=== PATIENT | male | born 1955 | race Caucasian/White ===

== ENCOUNTER 2016-06-27 14:20 | Outpatient (RCR) | payer BC | END 2016-06-28 | LOC: M CR 14:20 | PROVIDERS: ATTEND Internal Medicine Cardiovascular Disease | DX: Z51.89 Encounter for other specified aftercare (principal); Z98.61 Coronary angioplasty status; I25.10 Atherosclerotic heart disease of native coronary artery without angina pectoris ==

== ENCOUNTER 2016-07-18 08:30 | Outpatient (RCR) | payer BC | END 2016-07-26 | LOC: M CR 08:30 | PROVIDERS: ATTEND Internal Medicine Cardiovascular Disease | DX: Z98.61 Coronary angioplasty status (principal); I25.10 Atherosclerotic heart disease of native coronary artery without angina pectoris ==

== ENCOUNTER 2016-08-19 13:22 | Outpatient (RCR) | payer BC | END 2016-08-26 | LOC: M CR 13:22 | PROVIDERS: ATTEND Internal Medicine Cardiovascular Disease | DX: Z98.61 Coronary angioplasty status (principal); I25.10 Atherosclerotic heart disease of native coronary artery without angina pectoris ==

== ENCOUNTER 2016-09-05 14:07 | Outpatient (RCR) | payer BC | END 2016-09-25 | LOC: M CR 14:07 | PROVIDERS: ATTEND Internal Medicine Cardiovascular Disease | DX: Z98.61 Coronary angioplasty status (principal); I25.10 Atherosclerotic heart disease of native coronary artery without angina pectoris ==

== ENCOUNTER → 2016-11-01 | Outpatient (CLI) | payer BC ==
[2016-11-01 14:07] LABS: BASO % 0.7 % (0.0-1.0); EOS # 0.2 K/mm3 (0.0-0.50); LARGE UNSTAINED CELL # 0.1 K/mm3 (0.0-0.4); LARGE UNSTAINED CELL % 1.8 % (0.0-4.0); LYMPH # 1.8 K/mm3 (1.5-4.5); LYMPH % 25.1 % (24.0-44.0); MEAN CORPUSCULAR HEMOGLOBIN 31.8 pg (27.0-33.0); MEAN CORPUSCULAR HGB CONC 34.1 g/dl (32.0-36.5); MEAN CORPUSCULAR VOLUME 93.3 fl (80.0-96.0); MONO # 0.5 K/mm3 (0.0-0.8); MONO % 6.7 % (0.0-5.0); NEUTROPHILS # 4.4 K/mm3 (1.8-7.7); NEUTROPHILS % 62.6 % (36.0-66.0); PLATELET COUNT, AUTOMATED 286 k/mm3 (150-450); RED CELL DISTRIBUTION WIDTH 12.1 % (11.5-14.5); WHITE BLOOD COUNT 7.1 K/mm3 (4.0-10.0)
[2016-11-01 14:25] LABS: ALBUMIN 3.6 GM/DL (3.2-5.2); ALBUMIN/GLOBULIN RATIO 1.33 (1.00-1.93); ALKALINE PHOSPHATASE 69 U/L (45-117); ALT/SGPT 46 U/L (12-78); ANION GAP 5 MEQ/L (8-16); AST/SGOT 19 U/L (15-37); BILIRUBIN,TOTAL 0.4 MG/DL (0.2-1.0); BLOOD UREA NITROGEN 12 MG/DL (7-18); CALCIUM LEVEL 8.9 MG/DL (8.8-10.2); CARBON DIOXIDE LEVEL 30 MEQ/L (21-32); CHLORIDE LEVEL 106 MEQ/L (98-107); CREATININE FOR GFR 0.87 MG/DL (0.70-1.30); GLOMERULAR FILTRATION RATE > 60.0 (>49); GLUCOSE, FASTING 96 MG/DL (80-110); POTASSIUM SERUM 4.4 MEQ/L (3.5-5.1); SODIUM LEVEL 141 MEQ/L (136-145); TOTAL PROTEIN 6.3 GM/DL (6.4-8.2)
== END ==
LOC: M LRY 11:13
PROVIDERS: ATTEND Family Medicine
DX: R53.83 Other fatigue (principal); R63.5 Abnormal weight gain

== ENCOUNTER → 2018-07-18 | Outpatient (REF) | payer BC | LOC: M LAB REF 15:50 | PROVIDERS: ATTEND Ophthalmology | DX: H11.442 Conjunctival cysts, left eye (principal) ==

== ENCOUNTER → 2018-09-28 | Outpatient (CLI) | payer BC ==
[2018-09-28 11:27] LABS: HEMATOCRIT 42.1 % (42.0-52.0); HEMOGLOBIN 14.2 g/dl (13.5-17.5); MEAN CORPUSCULAR HGB CONC 33.7 g/dl (32.0-36.5); MEAN CORPUSCULAR VOLUME 91.9 fl (80.0-96.0); PLATELET COUNT, AUTOMATED 281 10^3/uL (150-450); RED BLOOD COUNT 4.58 10^6/uL (4.30-6.10); WHITE BLOOD COUNT 7.8 10^3/uL (4.0-10.0)
[2018-09-28 11:56] LABS: ALBUMIN 3.7 GM/DL (3.2-5.2); ALT/SGPT 22 U/L (12-78); BILIRUBIN,TOTAL 0.3 MG/DL (0.2-1.0); BLOOD UREA NITROGEN 12 MG/DL (7-18); CALCIUM LEVEL 8.5 MG/DL (8.8-10.2); CARBON DIOXIDE LEVEL 28 MEQ/L (21-32); CHLORIDE LEVEL 109 MEQ/L (98-107); CHOLESTEROL LEVEL 165 MG/DL (<200); CHOLESTEROL RISK RATIO 2.946 (<5); CREATININE FOR GFR 0.87 MG/DL (0.70-1.30); GLOMERULAR FILTRATION RATE > 60.0 (>49); GLUCOSE, FASTING 93 MG/DL (70-100); HDL CHOLESTEROL 56 MG/DL (>40); LDL CHOLESTEROL 93 MG/DL (<100); NON-HDL-C 109 MG/DL; POTASSIUM SERUM 4.2 MEQ/L (3.5-5.1); SODIUM LEVEL 141 MEQ/L (136-145); TOTAL PROTEIN 7.1 GM/DL (6.4-8.2); TRIGLYCERIDES LEVEL 79 MG/DL (<150)
== END ==
LOC: M LRY 10:05
PROVIDERS: ATTEND Physician Assistant
DX: I25.10 Atherosclerotic heart disease of native coronary artery without angina pectoris (principal)

== ENCOUNTER → 2020-04-30 | Outpatient (REF) | payer BC ==
[2020-04-30 12:11] LABS: APPEARANCE, URINE CLEAR (CLEAR); BACTERIA, URINE AUTO NEGATIVE (NEGATIVE); BILIRUBIN, URINE AUTO NEGATIVE (NEGATIVE); BLOOD, URINE BLOOD 1+ (NEGATIVE); COLOR, URINE YELLOW (YELLOW); GLUCOSE, URINE (UA) AUTO NEGATIVE (NEGATIVE); KETONE, URINE AUTO NEGATIVE (NEGATIVE); LEUKOCYTE ESTERASE, URINE AUTO NEGATIVE (NEGATIVE); MUCUS, URINE SMALL (NEGATIVE); NITRITE, URINE AUTO NEGATIVE (NEGATIVE); PROTEIN, URINE AUTO NEGATIVE (NEGATIVE); RBC, URINE AUTO 4 /HPF (0-3); SQUAMOUS EPITHELIAL CELL UR AU 0 /HPF (0-6); UROBILINOGEN, URINE AUTO 0.2 mg/dL (0.0-2.0); WBC, URINE AUTO 1 /HPF (0-3)
== END ==
LOC: M LAB REF 11:23
PROVIDERS: ATTEND Physician Assistant
DX: N39.0 Urinary tract infection, site not specified (principal)

== ENCOUNTER → 2020-05-12 | Outpatient (REF) | payer BC ==
[2020-05-12 16:51] LABS: APPEARANCE, URINE HAZY (CLEAR); BACTERIA, URINE AUTO NEGATIVE (NEGATIVE); BILIRUBIN, URINE AUTO NEGATIVE (NEGATIVE); BLOOD, URINE BLOOD 1+ (NEGATIVE); COLOR, URINE YELLOW (YELLOW); GLUCOSE, URINE (UA) AUTO NEGATIVE (NEGATIVE); KETONE, URINE AUTO NEGATIVE (NEGATIVE); LEUKOCYTE ESTERASE, URINE AUTO NEGATIVE (NEGATIVE); MUCUS, URINE SMALL (NEGATIVE); NITRITE, URINE AUTO NEGATIVE (NEGATIVE); PROTEIN, URINE AUTO NEGATIVE (NEGATIVE); RBC, URINE AUTO 8 /HPF (0-3); SPECIFIC GRAVITY URINE AUTO 1.024 (1.002-1.035); SQUAMOUS EPITHELIAL CELL UR AU 0 /HPF (0-6); UROBILINOGEN, URINE AUTO 0.2 mg/dL (0.0-2.0); WBC, URINE AUTO 1 /HPF (0-3)
== END ==
LOC: M LAB REF 16:30
PROVIDERS: ATTEND Physician Assistant
DX: N39.0 Urinary tract infection, site not specified (principal)

== ENCOUNTER → 2021-07-06 | Outpatient (CLI) | payer BC ==
[2021-07-06 12:11] LABS: HEMATOCRIT 44.6 % (42.0-52.0); HEMOGLOBIN 14.8 g/dl (13.5-17.5); MEAN CORPUSCULAR HEMOGLOBIN 31.1 pg (27.0-33.0); MEAN CORPUSCULAR HGB CONC 33.2 g/dl (32.0-36.5); MEAN CORPUSCULAR VOLUME 93.7 fl (80.0-96.0); PLATELET COUNT, AUTOMATED 283 10^3/uL (150-450); RED BLOOD COUNT 4.76 10^6/uL (4.30-6.10); WHITE BLOOD COUNT 8.1 10^3/uL (4.0-10.0)
[2021-07-06 12:54] LABS: ALBUMIN 3.8 GM/DL (3.2-5.2); ALT/SGPT 31 U/L (12-78); BILIRUBIN,TOTAL 0.3 MG/DL (0.2-1.0); BLOOD UREA NITROGEN 16 MG/DL (7-18); CALCIUM LEVEL 9.2 MG/DL (8.8-10.2); CARBON DIOXIDE LEVEL 24 MEQ/L (21-32); CHLORIDE LEVEL 108 MEQ/L (98-107); CHOLESTEROL LEVEL 152 MG/DL (<200); CHOLESTEROL RISK RATIO 2.714 (<5); CREATININE FOR GFR 0.91 MG/DL (0.70-1.30); GLOMERULAR FILTRATION RATE > 60.0 (>49); GLUCOSE, FASTING 97 MG/DL (70-100); HDL CHOLESTEROL 56 MG/DL (>40); LDL CHOLESTEROL 86 MG/DL (<100); NON-HDL-C 96 MG/DL; POTASSIUM SERUM 4.3 MEQ/L (3.5-5.1); SODIUM LEVEL 140 MEQ/L (136-145); TOTAL PROTEIN 6.7 GM/DL (6.4-8.2); TRIGLYCERIDES LEVEL 50 MG/DL (<150)
[2021-07-07 15:09] LABS: Lyme Disease IgG/IgM Antibodie <0.91 ISR (0.00-0.90); Lyme Disease IgM Ab Quantitati <0.80 index (0.00-0.79)
== END ==
LOC: M WUC 09:19
PROVIDERS: ATTEND Physician Assistant
DX: I25.10 Atherosclerotic heart disease of native coronary artery without angina pectoris (principal); R53.83 Other fatigue; R06.02 Shortness of breath

== ENCOUNTER 2021-11-25 09:53 | Emergency (ER) | payer BC ==
[2021-11-25 10:33] LABS: BASO # 0.1 10^3/uL (0.0-0.2); BASO % 1.1 % (0.0-1.0); EOS # 0.2 10^3/uL (0.0-0.5); HEMATOCRIT 41.5 % (42.0-52.0); HEMOGLOBIN 14.1 g/dl (13.5-17.5); LYMPH # 1.5 10^3/uL (1.5-5.0); MEAN CORPUSCULAR HEMOGLOBIN 31.5 pg (27.0-33.0); MEAN CORPUSCULAR VOLUME 92.6 fl (80.0-96.0); MONO # 0.5 10^3/uL (0.0-0.8); MONO % 7.9 % (2.0-8.0); NEUTROPHILS # 4.3 10^3/uL (1.5-8.5); NEUTROPHILS % 64.5 % (36.0-66.0); PLATELET COUNT, AUTOMATED 255 10^3/uL (150-450); RED BLOOD COUNT 4.48 10^6/uL (4.30-6.10); WHITE BLOOD COUNT 6.6 10^3/uL (4.0-10.0)
[2021-11-25 10:58] LABS: CK-MB VALUE MASS 5.2 NG/ML (<3.6); MB/CK RELATIVE INDEX 1.67 (< OR =4)
[2021-11-25 10:59] LABS: ALT/SGPT 28 U/L (12-78); BILIRUBIN,DIRECT 0.1 MG/DL (0.0-0.2); BILIRUBIN,TOTAL 0.4 MG/DL (0.2-1.0); BLOOD UREA NITROGEN 14 MG/DL (7-18); CALCIUM LEVEL 9.4 MG/DL (8.8-10.2); CARBON DIOXIDE LEVEL 29 MEQ/L (21-32); CHLORIDE LEVEL 108 MEQ/L (98-107); CREATININE FOR GFR 0.85 MG/DL (0.70-1.30); GLOMERULAR FILTRATION RATE > 60.0 (>49); GLUCOSE, FASTING 109 MG/DL (70-100); LIPASE 311 U/L (73-393); NT-PRO BNP 25 PG/ML (<125); POTASSIUM SERUM 3.9 MEQ/L (3.5-5.1); SODIUM LEVEL 141 MEQ/L (136-145); TOTAL PROTEIN 6.5 GM/DL (6.4-8.2)
[2021-11-25 11:07] LABS: RSV AMPLIFICATION NEGATIVE (NEGATIVE)
[2021-11-25] MEDS ORDERED: ISOVUE-370 76% 100ML VIAL As Ordered ONE (11:11)
[2021-11-25 12:17] LABS: CK-MB VALUE MASS 5.2 NG/ML (<3.6); MB/CK RELATIVE INDEX 1.76 (< OR =4)
[2021-11-25 15:05] LABS: CK-MB VALUE MASS 4.5 NG/ML (<3.6); MB/CK RELATIVE INDEX 1.62 (< OR =4)
[2021-11-25 15:52] VITALS: BP 153/86
== END 2021-11-25 15:54 | disposition home or self-care (01) ==
LOC: EDBD 09:53 → M ED 09:53
DX: R07.9 Chest pain, unspecified (principal); I25.10 Atherosclerotic heart disease of native coronary artery without angina pectoris; I25.2 Old myocardial infarction; Z95.5 Presence of coronary angioplasty implant and graft; Z88.5 Allergy status to narcotic agent
CPT/HCPCS: 71045; 71275; 80048; 80076; 82550; 82553; 83690; 83880; 84484; 85025; 87631; 93005; 93041; 94760; 99285; Q9967

== ENCOUNTER → 2022-06-06 | Outpatient (CLI) | payer BC ==
[2022-06-06 13:32] LABS: BASO % 0.4 % (0.0-1.0); EOS # 0.5 10^3/uL (0.0-0.5); EOS % 7.4 % (0.0-3.0); HEMATOCRIT 43.6 % (42.0-52.0); HEMOGLOBIN 14.5 g/dl (13.5-17.5); LYMPH # 1.1 10^3/uL (1.5-5.0); LYMPH % 15.7 % (24.0-44.0); MEAN CORPUSCULAR HGB CONC 33.3 g/dl (32.0-36.5); MEAN CORPUSCULAR VOLUME 93.2 fl (80.0-96.0); MONO # 0.8 10^3/uL (0.0-0.8); MONO % 11.5 % (2.0-8.0); NEUTROPHILS # 4.5 10^3/uL (1.5-8.5); NEUTROPHILS % 64.7 % (36.0-66.0); PLATELET COUNT, AUTOMATED 293 10^3/uL (150-450); RED BLOOD COUNT 4.68 10^6/uL (4.30-6.10)
[2022-06-06 15:14] LABS: ALBUMIN 3.4 G/DL (3.2-5.2); ALKALINE PHOSPHATASE 95 U/L (46-116); ALT/SGPT 24 U/L (7.0-40); AST/SGOT 18 U/L (<34); BILIRUBIN,DIRECT 0.1 MG/DL (<0.4); BILIRUBIN,TOTAL 0.4 MG/DL (0.3-1.2); BLOOD UREA NITROGEN 14 MG/DL (9-23); CALCIUM LEVEL 8.5 MG/DL (8.3-10.6); CARBON DIOXIDE LEVEL 26 MMOL/L (20-31); CHLORIDE LEVEL 104 MMOL/L (98-107); CREATININE FOR GFR 0.98 MG/DL (0.70-1.30); GLOMERULAR FILTRATION RATE > 60.0 (>49); GLUCOSE, FASTING 110 MG/DL (74-106); POTASSIUM SERUM 3.8 MMOL/L (3.5-5.1); SODIUM LEVEL 139 MMOL/L (136-145)
[2022-06-06 15:17] LABS: CPK CREATINE PHOSPHOKINASE 126 U/L (46-171)
== END ==
LOC: M WUC 11:05
PROVIDERS: ATTEND Physician Assistant
DX: R09.1 Pleurisy (principal)

== ENCOUNTER → 2023-10-03 | Outpatient (CLI) | payer BC ==
[~2023-10-03] MED LIST: GASTROGRAFIN SOLUTION 30ML ONE; ISOVUE-370 76% 100ML VIAL ONE
== END ==
LOC: M PLAIMG 08:20
PROVIDERS: ATTEND Physician Assistant
DX: R10.817 Generalized abdominal tenderness (principal); J84.10 Pulmonary fibrosis, unspecified; K57.90 Diverticulosis of intestine, part unspecified, without perforation or abscess without bleeding; R93.3 Abnormal findings on diagnostic imaging of other parts of digestive tract
CPT/HCPCS: 74177; Q9963; Q9967

== ENCOUNTER 2023-11-03 08:54 | Day surgery (SDC) | payer BC, MEDICARE ==
[~2023-11-03] VITALS: Ht 162.6 cm; Wt 85.3 kg
[~2023-11-03 08:54] MED LIST changes: +ASPI81TA26 PO; +ATOR40TA75 PO; -GASTROGRAFIN SOLUTION 30ML ONE; -ISOVUE-370 76% 100ML VIAL ONE
[2023-11-03] MEDS: NS 1,000 ML IV ONE (10:00)
[2023-11-03] MEDS ORDERED: propofoL 500 MG/50 ML VIAL As Ordered ONE (11:11)
[2023-11-03] MEDS ORDERED: LIDOCAINE 2% 100MG/5ML SDV (FOR ANES.) As Ordered ONE (11:11)
[2023-11-03 11:44] VITALS: TEMP 97.9
[2023-11-03 12:07] VITALS: BP 170/84; O2SAT 95
== END 2023-11-03 12:16 | disposition home or self-care (01) ==
LOC: M OPP 08:54
PROVIDERS: ATTEND Surgery
DX: D12.6 Benign neoplasm of colon, unspecified (principal); C18.5 Malignant neoplasm of splenic flexure; K64.2 Third degree hemorrhoids; K57.30 Diverticulosis of large intestine without perforation or abscess without bleeding; R93.3 Abnormal findings on diagnostic imaging of other parts of digestive tract; R80.0 Isolated proteinuria; Z80.0 Family history of malignant neoplasm of digestive organs; G47.30 Sleep apnea, unspecified; Z95.5 Presence of coronary angioplasty implant and graft; Z79.02 Long term (current) use of antithrombotics/antiplatelets; Z79.82 Long term (current) use of aspirin; Z88.5 Allergy status to narcotic agent

== ENCOUNTER → 2023-12-14 | Outpatient (CLI) | payer BC ==
[2023-12-14 11:20] LABS: ALBUMIN 3.6 G/DL (3.2-5.2); BLOOD UREA NITROGEN 14 MG/DL (9-23); CALCIUM LEVEL 9.2 MG/DL (8.3-10.6); CARBON DIOXIDE LEVEL 27 MMOL/L (20-31); CHLORIDE LEVEL 107 MMOL/L (98-107); CREATININE FOR GFR 0.89 MG/DL (0.70-1.30); GLOMERULAR FILTRATION RATE > 60.0 (>49); GLUCOSE, FASTING 93 MG/DL (74-106); PHOSPHORUS LEVEL 3.4 MG/DL (2.4-5.1); POTASSIUM SERUM 4.4 MMOL/L (3.5-5.1); SODIUM LEVEL 141 MMOL/L (136-145)
[2023-12-14 11:24] LABS: THYROID STIMULATING HORMONE 0.927 uIU/ML (0.55-4.78)
== END ==
LOC: M PLALAB 09:02
PROVIDERS: ATTEND Internal Medicine Cardiovascular Disease
DX: R03.0 Elevated blood-pressure reading, without diagnosis of hypertension (principal); R60.0 Localized edema

== ENCOUNTER → 2023-12-14 | Outpatient (CLI) | payer BC ==
[2023-12-14 10:56] LABS: BASO # 0.1 10^3/uL (0.0-0.2); BASO % 1.2 % (0.0-1.0); EOS # 0.2 10^3/uL (0.0-0.5); EOS % 3.1 % (0.0-3.0); HEMATOCRIT 42.1 % (42.0-52.0); HEMOGLOBIN 14.1 g/dl (13.5-17.5); LYMPH # 1.9 10^3/uL (1.5-5.0); LYMPH % 24.8 % (24.0-44.0); MEAN CORPUSCULAR HEMOGLOBIN 31.1 pg (27.0-33.0); MEAN CORPUSCULAR HGB CONC 33.5 g/dl (32.0-36.5); MEAN CORPUSCULAR VOLUME 92.7 fl (80.0-96.0); MONO # 0.7 10^3/uL (0.0-0.8); MONO % 9.3 % (2.0-8.0); NEUTROPHILS # 4.8 10^3/uL (1.5-8.5); NEUTROPHILS % 61.3 % (36.0-66.0); PLATELET COUNT, AUTOMATED 279 10^3/uL (150-450); RED BLOOD COUNT 4.54 10^6/uL (4.30-6.10); WHITE BLOOD COUNT 7.8 10^3/uL (4.0-10.0)
[2023-12-14 11:09] LABS: HEMOGLOBIN A1c 5.8 % (4.0-6.0)
[2023-12-14 11:17] LABS: PSA SCREENING 1.23 NG/ML (< 4.00)
[2023-12-14 11:21] LABS: THYROID STIMULATING HORMONE 0.929 uIU/ML (0.55-4.78)
[2023-12-14 11:22] LABS: ALBUMIN 3.6 G/DL (3.2-5.2); ALKALINE PHOSPHATASE 90 U/L (46-116); ALT/SGPT 22 U/L (7.0-40); AST/SGOT 10 U/L (<34); BILIRUBIN,TOTAL 0.6 MG/DL (0.3-1.2); BLOOD UREA NITROGEN 15 MG/DL (9-23); CALCIUM LEVEL 9.3 MG/DL (8.3-10.6); CARBON DIOXIDE LEVEL 28 MMOL/L (20-31); CHLORIDE LEVEL 108 MMOL/L (98-107); CHOLESTEROL LEVEL 147 MG/DL (<200); CREATININE FOR GFR 0.89 MG/DL (0.70-1.30); GLOMERULAR FILTRATION RATE > 60.0 (>49); GLUCOSE, FASTING 95 MG/DL (74-106); LDL CHOLESTEROL 91.2 MG/DL (<100); POTASSIUM SERUM 4.6 MMOL/L (3.5-5.1); SODIUM LEVEL 140 MMOL/L (136-145); TOTAL PROTEIN 6.4 G/DL (5.7-8.2); TRIGLYCERIDES LEVEL 69 MG/DL (<150)
[2023-12-14 11:23] LABS: TOTAL 25(OH) VITAMIN D 30.7 NG/ML (20.0-100.0)
== END ==
LOC: M PLALAB 08:59
PROVIDERS: ATTEND Physician Assistant
DX: E55.9 Vitamin D deficiency, unspecified (principal); I25.709 Atherosclerosis of coronary artery bypass graft(s), unspecified, with unspecified angina pectoris; R03.0 Elevated blood-pressure reading, without diagnosis of hypertension; R06.02 Shortness of breath; R60.0 Localized edema; Z12.5 Encounter for screening for malignant neoplasm of prostate; Z13.220 Encounter for screening for lipoid disorders; Z13.29 Encounter for screening for other suspected endocrine disorder
CPT/HCPCS: 36415; 80053; 80061; 82306; 83036; 83880; 84439; 84443; 85025; G0103

== ENCOUNTER → 2023-12-19 | Outpatient (CLI) | payer BC | LOC: M PLAIMG 12:27 | PROVIDERS: ATTEND Internal Medicine Cardiovascular Disease | DX: I08.3 Combined rheumatic disorders of mitral, aortic and tricuspid valves (principal); R06.02 Shortness of breath; I27.20 Pulmonary hypertension, unspecified ==

== ENCOUNTER → 2024-01-03 | Outpatient (CLI) | payer BC | LOC: M SLEEP HO 11:05 | PROVIDERS: ATTEND Internal Medicine Cardiovascular Disease | DX: G47.33 Obstructive sleep apnea (adult) (pediatric) (principal); I20.89 Other forms of angina pectoris; R06.83 Snoring ==

== ENCOUNTER → 2025-02-18 | Outpatient (CLI) | payer BC | LOC: M CARPUL 14:36 | PROVIDERS: ATTEND Physician Assistant | DX: I25.10 Atherosclerotic heart disease of native coronary artery without angina pectoris (principal) ==

== ENCOUNTER → 2025-02-27 | Outpatient (CLI) | payer BC ==
[2025-02-27 14:09] LABS: PSA SCREENING 1.41 NG/ML (< 4.00)
[2025-02-27 14:12] LABS: ALT/SGPT 29 U/L (7.0-40); AST/SGOT 20 U/L (<34); CALCIUM LEVEL 8.6 MG/DL (8.3-10.6); CARBON DIOXIDE LEVEL 27 MMOL/L (20-31); CHLORIDE LEVEL 106 MMOL/L (98-107); CHOLESTEROL LEVEL 148 MG/DL (<200); CHOLESTEROL RISK RATIO 3.35 (<5); CREATININE FOR GFR 0.89 MG/DL (0.70-1.30); FREE T4 0.96 NG/DL (0.89-1.76); GLOMERULAR FILTRATION RATE > 90.0 (>42); LDL CHOLESTEROL 88.9 MG/DL (<100); NON-HDL-C 103.9 MG/DL; POTASSIUM SERUM 4.0 MMOL/L (3.5-5.1); SODIUM LEVEL 138 MMOL/L (136-145); TRIGLYCERIDES LEVEL 75 MG/DL (<150)
[2025-02-27 14:14] LABS: TOTAL 25(OH) VITAMIN D 31.9 NG/ML (20.0-100.0)
[2025-02-27 14:26] LABS: BASO # 0.1 10^3/uL (0.0-0.2); BASO % 1.3 % (0.0-1.0); EOS # 0.1 10^3/uL (0.0-0.5); EOS % 2.2 % (0.0-3.0); LYMPH # 1.8 10^3/uL (1.5-5.0); LYMPH % 28.0 % (24.0-44.0); MONO # 0.5 10^3/uL (0.0-0.8); MONO % 8.2 % (2.0-8.0); NEUTROPHILS # 3.8 10^3/uL (1.5-8.5); NEUTROPHILS % 60.0 % (36.0-66.0); PLATELET COUNT, AUTOMATED 280 10^3/uL (150-450)
[2025-02-27 14:32] LABS: ESTIMATED AVERAGE GLUCOSE 128.0 MG/DL (60-110)
[2025-03-03 14:12] LABS: LYME TOTAL ANTIBODY CIA <= 0.90 Index (<=0.90)
== END ==
LOC: M PLALAB 09:20
PROVIDERS: ATTEND Physician Assistant
DX: Z00.00 Encounter for general adult medical examination without abnormal findings (principal); R73.01 Impaired fasting glucose; I25.10 Atherosclerotic heart disease of native coronary artery without angina pectoris; E55.9 Vitamin D deficiency, unspecified; I25.709 Atherosclerosis of coronary artery bypass graft(s), unspecified, with unspecified angina pectoris; M17.0 Bilateral primary osteoarthritis of knee; Z85.038 Personal history of other malignant neoplasm of large intestine; S20.361A Insect bite (nonvenomous) of right front wall of thorax, initial encounter; Y92.9 Unspecified place or not applicable; Y93.9 Activity, unspecified; Y99.9 Unspecified external cause status; X58.XXXA Exposure to other specified factors, initial encounter
CPT/HCPCS: 36415; 80048; 80053; 80061; 82306; 83036; 84439; 84443; 84550; 85025; 86618; G0103

== ENCOUNTER → 2025-02-27 | Outpatient (CLI) | payer BC ==
[2025-02-27 14:50] LABS: CALCIUM LEVEL 8.8 MG/DL (8.3-10.6); CARBON DIOXIDE LEVEL 28 MMOL/L (20-31); CHLORIDE LEVEL 105 MMOL/L (98-107); CREATININE FOR GFR 0.89 MG/DL (0.70-1.30); GLOMERULAR FILTRATION RATE > 90.0 (>42); POTASSIUM SERUM 3.9 MMOL/L (3.5-5.1); SODIUM LEVEL 141 MMOL/L (136-145)
[2025-02-27 14:55] LABS: BASO # 0.1 10^3/uL (0.0-0.2); BASO % 0.9 % (0.0-1.0); EOS # 0.1 10^3/uL (0.0-0.5); EOS % 2.0 % (0.0-3.0); LYMPH # 1.7 10^3/uL (1.5-5.0); LYMPH % 26.6 % (24.0-44.0); MONO # 0.6 10^3/uL (0.0-0.8); MONO % 8.8 % (2.0-8.0); NEUTROPHILS # 3.9 10^3/uL (1.5-8.5); NEUTROPHILS % 61.4 % (36.0-66.0); PLATELET COUNT, AUTOMATED 286 10^3/uL (150-450)
== END ==
LOC: M PLALAB 09:22
PROVIDERS: ATTEND Physician Assistant
DX: I25.10 Atherosclerotic heart disease of native coronary artery without angina pectoris (principal)